=== PATIENT | male | born 1975 | race Caucasian/White ===

== ENCOUNTER 2020-09-11 02:53 | Emergency (ER) | payer SELFPAY ==
[2020-09-11] MEDS ORDERED: IBUPROFEN 600 MG TABLET PO ONE (03:56)
[2020-09-11] MEDS ORDERED: LIDOCAINE 2% VISCOUS SOLN 15 ML UDCUP PO ONE (04:01)
[2020-09-11] MEDS ORDERED: CIPROFLOXACIN HCL/DEXAMETH OTIC DROP 7.5 ML AD ONE (04:11)
--- NOTE | 2020-09-11 04:21 | ER Document Report ---
ED General - General Chief Complaint: Ear Pain Stated Complaint: HEAD PAIN WITH RIGHT EAR DRAINAGE AND CHILLS Primary Care Provider: BEN,RAJAN [Primary Care Provider] - Follow up as needed Information source: Patient Notes: 45-year-old male with htn presents with 2 days of right ear pain and discharge. Patient denies any foreign bodies, recent swimming, diabetes, HIV, immunocompromise history, prior episodes, prior antibiotics, fever - Related Data Allergies/Adverse Reactions: No Known Allergies Allergy (Unverified 09/11/20 03:06) Past Medical History - General Information source: Patient - Social History Smoking Status: Current Every Day Smoker Frequency of alcohol use: Heavy Drug Abuse: None Family History: Reviewed & Not Pertinent Review of Systems - Review of Systems Notes: REVIEW OF SYSTEMS: CONSTITUTIONAL : Denies fever, sweats. EENT: Denies recent cold/sinus symptoms, denies throat pain CARDIOVASCULAR: Denies chest pain, [employer] RESPIRATORY: Denies cough, denies shortness of breath. GASTROINTESTINAL: Denies abdominal pain, nausea/vomiting. GENITOURINARY: Denies difficulty urinating, painful urination. MUSCULOSKELETAL: Denies neck pain, back pain. SKIN: Denies rash or skin lesions. HEMATOLOGIC : Denies easy bruising or bleeding. LYMPHATIC: Denies swollen, enlarged glands. NEUROLOGICAL: Denies vertigo, denies change in gait. PSYCHIATRIC: Denies anxiety or stress or depression. Physical Exam - Vital signs Vitals: Temp Pulse Resp BP Pulse Ox 98.3 F 88 17 155/99 H 93 09/11/20 03:00 09/11/20 03:00 09/11/20 03:00 09/11/20 03:00 09/11/20 03:00 - Notes Notes: PHYSICAL EXAMINATION: GENERAL: Well-appearing, well-nourished and in no acute distress. HEAD: Atraumatic, normocephalic. EYES: Pupils equal round and appropriate constriction, sclera anicteric, conjunctiva are normal. ENT: nares patent, moist mucous membranes, no mastoid tenderness, normal ear positioning, edema of right external auditory canal with white discharge unable to visualize TM initially, after suctioning TM intact without bulging NECK: Normal range of motion, supple without lymphadenopathy LUNGS: Normal respiratory rate and effort, speaking in full sentences HEART: Regular rate, no JVD, no lower extremity edema EXTREMITIES: Normal range of motion, no pitting or edema. No cyanosis. NEUROLOGICAL: Awake, alert, conversing appropriately, moves all extremities spontaneously. PSYCH: Normal mood, normal affect. SKIN: Warm, Dry, normal turgor, no rashes or lesions noted. Course - Re-evaluation Re-evalutation: 09/11/20 05:17 Otitis externa with out any underlying immunocompromise, unknown trigger, TM intact, no systemic symptoms, normal vitals, well-appearing, able to visualize TM after suctioning ear, patient appropriate for outpatient antibiotics with ENT follow-up. Gave return to ED precautions which she demonstrated standing up. Patient ready for discharge. 09/11/20 05:20 Wound suctioning performed by myself at 5:10 AM with 1% viscous lidocaine in the right ear installation for 20 minutes prior to procedure. Used 6 [place] tube suctioning to anterior external auditory canal on the right and perform suctioning to assisted antibiotic effectiveness, visualize TM, and improve patient's symptoms. Able to visualize TM intact after procedure, pain was improved, patient ready for discharge. - Vital Signs Vital signs: Temp Pulse Resp BP Pulse Ox 98.3 F 88 17 155/99 H 93 09/11/20 03:00 09/11/20 03:00 09/11/20 03:00 09/11/20 03:00 09/11/20 03:00 Discharge - Discharge Clinical Impression: Right otitis externa Qualifiers: Otitis externa type: other infective Chronicity: acute Qualified Code(s): H60.391 - Other infective otitis externa, right ear Disposition: HOME, SELF-CARE Additional Instructions: Otitis Externa You have otitis externa -- an infection of the outer ear canal. This can be very painful. It's sometimes called "swimmer's ear," because it often occurs after prolonged water exposure. Many things, such as earwax and dirt in the ear, can contribute to it. The usual treatment is antibiotic/antiinflammatory ear drops. Occasionally, a wick will be placed in the ear to draw in the medicine. If the infection is severe, an oral antibiotic may be prescribed. Pain medication is often needed. Avoid getting water in the ear. Outer ear infections often take longer to heal than you might expect. Some tenderness and ache in the ear may persist for about two weeks. See your physician if you fail to improve as expected. Call the doctor at once if you develop fever, increasing swelling (particularly if it makes your ear "poke out"), severe headache, stiff neck, or decreased hearing. Prescriptions: Ciprofloxacin HCl/Dexameth [Ciproflox-Dexameth Otic Susp] 7.5 ml OT BID #1 drops.susp Referrals: CYNTHIA FUNK DO [ASSOCIATE] - Follow up in 1 week
[2020-09-11 06:05] VITALS: BP 140/98
== END 2020-09-11 06:05 | disposition home or self-care (01) ==
LOC: ER 02:53
DX: H60.391 Other infective otitis externa, right ear (principal); H92.11 Otorrhea, right ear; R51.9 Headache, unspecified; F17.200 Nicotine dependence, unspecified, uncomplicated
CPT/HCPCS: 99283; 82962; J3490 ×2